=== PATIENT | female | born 1995 | race Two or more races ===

== ENCOUNTER 2025-05-13 10:20 | Outpatient (AMB) | payer BC, MEDICAID, SELFPAY ==
[2025-05-13 10:47] VITALS: BP 96/69; PULSE 86; RESP 18; TEMP 36.5; O2SAT 99; BMI 30.1
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
== END 2025-05-13 11:22 | disposition home or self-care (01) ==
LOC: HODSOBC 10:20
PROVIDERS: Supervising Provider Advanced Practice Midwife; Visit Provider Advanced Practice Midwife
DX: O09.293 Supervision of pregnancy with other poor reproductive or obstetric history, third trimester (principal); O34.211 Maternal care for low transverse scar from previous cesarean delivery; Z87.59 Personal history of other complications of pregnancy, childbirth and the puerperium; Z3A.33 33 weeks gestation of pregnancy
CPT/HCPCS: 99204; G0463

== ENCOUNTER 2025-05-27 09:26 | Outpatient (AMB) | payer MEDICAID, SELFPAY ==
[2025-05-27 09:32] VITALS: BP 101/63; PULSE 101; RESP 20; TEMP 36.2; O2SAT 98; BMI 30.4
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
== END 2025-05-27 10:09 | disposition home or self-care (01) ==
LOC: HODSOBC 09:26
PROVIDERS: Supervising Provider Obstetrics & Gynecology; Visit Provider Obstetrics & Gynecology
DX: O09.293 Supervision of pregnancy with other poor reproductive or obstetric history, third trimester (principal); O34.211 Maternal care for low transverse scar from previous cesarean delivery; Z3A.35 35 weeks gestation of pregnancy
CPT/HCPCS: 99214; G0463

== ENCOUNTER 2025-06-02 10:40 | Outpatient (CLI) | payer MEDICAID, SELFPAY ==
[2025-06-02 10:50] VITALS: BMI 29.4
--- NOTE | 2025-06-02 10:50 | XR_ITS ---
Examination: Biophysical profile, ultrasound Date and time of exam: June 02, 2025 1057 hours INDICATIONS: Schedule for labor induction June 09, 2025 Technique: Multiple transabdominal sonographic images of the pelvis abdomen obtained. Attention is directed to the breathing movement, gross body movement, amniotic fluid volume and tone. Findings: Amniotic fluid index 11.5 cm Total biophysical profile is 8 of 8. breathing movement is 2. Gross body movement is 2. tone is 2. Qualitative amniotic fluid volume is 2 Impression: Biophysical profile is 8 of 8.
[2025-06-02 11:19] VITALS: BP 113/66; PULSE 96
[2025-06-02 11:29] VITALS: BP 113/66; PULSE 96; RESP 16; RESP 99; TEMP 36.6
== END 2025-06-02 12:12 | disposition home or self-care (01) ==
LOC: S4S1 10:44 → S4SX 10:48
PROVIDERS: Referring Provider Obstetrics & Gynecology; Visit Provider Obstetrics & Gynecology
DX: Z34.90 Encounter for supervision of normal pregnancy, unspecified, unspecified trimester (principal); Z36.9 Encounter for antenatal screening, unspecified; Z3A.00 Weeks of gestation of pregnancy not specified
CPT/HCPCS: 59025; 76819

== ENCOUNTER 2025-06-06 21:30 | Observation (INO) | payer MEDICAID, SELFPAY ==
[2025-06-06] VITALS (34 sets, daily range): BP systolic 83–108; BP diastolic 50–71; PULSE 83–119; RESP 17–98; TEMP 36.7; O2SAT 98–100; BMI 30.2
[2025-06-06 22:55] LABS: Collection Type, Urine Clean Catch
[2025-06-06 23:00] LABS: Bilirubin,Urine Negative (Negative); Blood,Urine Negative (Negative); Clarity,Urine Clear (Clear/Hazy); Color,Urine Colorless (Lt Yel-Yel); Glucose, Urine Negative (Negative); Ketones,Urine Negative (Negative); Leukocyte Esterase,Urine Positive (Negative); Nitrite,Urine Negative (Negative); PH,Urine 6.5 (5.0-7.0); Protein,Urine Negative (Neg - Trace); RBC,Urine 2 /hpf (0-3); Specific Gravity,Urine 1.004 (1.001-1.035); Squamous Epithelial Cell,Urine 2 /hpf (0-5); Urobilinogen,Urine Negative mg/dL (0.0-1.0); WBC,Urine 4 /hpf (0-5)
[2025-06-06] MEDS: TERBUTALINE SULF INJ 1 MG/ML VIAL 0.25 MG SC (23:02)
[2025-06-07 00:03] VITALS: PULSE 115; O2SAT 100
[2025-06-07 00:08] VITALS: PULSE 103; O2SAT 100
[2025-06-07 00:13] VITALS: PULSE 104; O2SAT 98
[2025-06-07 03:26] VITALS: BP 110/70; PULSE 77
== END 2025-06-07 00:25 | disposition home or self-care (01) ==
PROVIDERS: Admitting Provider Obstetrics & Gynecology; Visit Provider Obstetrics & Gynecology
DX: O47.03 False labor before 37 completed weeks of gestation, third trimester (principal); Z3A.36 36 weeks gestation of pregnancy
CPT/HCPCS: 59025; 59899; 81001; 96372; J3105

== ENCOUNTER 2025-06-11 15:39 | Outpatient (AMB) | payer MEDICAID, SELFPAY ==
[2025-06-11 15:45] VITALS: BP 101/72; PULSE 87; RESP 16; TEMP 36.6; O2SAT 98; BMI 32.3
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
== END 2025-06-11 15:50 | disposition home or self-care (01) ==
LOC: HODSOBC 15:39
PROVIDERS: Supervising Provider Obstetrics & Gynecology; Visit Provider Obstetrics & Gynecology
DX: O09.293 Supervision of pregnancy with other poor reproductive or obstetric history, third trimester (principal); Z3A.37 37 weeks gestation of pregnancy; O34.211 Maternal care for low transverse scar from previous cesarean delivery
CPT/HCPCS: 99214; G0463